=== PATIENT | male | born 1995 | race Caucasian/White ===

== ENCOUNTER 2021-06-06 13:06 | Emergency (ER) | payer BC ==
[2021-06-06] MEDS ORDERED: dexAMETHasone 10 MG/ML VIAL ONE (15:43)
--- NOTE | 2021-06-06 16:16 | EDPHYS ---
Physician Documentation [facility] Name: Al Deleon Age: 26 yrs Sex: Male : 1995 Arrival Date: 06/06/2021 Time: 13:08 Bed 12 Private MD: TAL Physician Eddi Bacon HPI: 06/06 15:08 This 26 yrs old Male presents to ER via Ambulatory with complaints of COVID+, jmm Cough. 15:08 The patient or guardian reports cough. Onset: The symptoms/episode began/occurred jmm gradually, 9 day(s) ago. Modifying factors: The symptoms are alleviated by nothing. the symptoms are aggravated by nothing. Associated signs and symptoms: Pertinent positives: sore throat. The patient has not experienced similar symptoms in the past. Historical: - Allergies: 13:34 No Known Allergies; ll1 - PMHx: 13:34 Seizure; ll1 - PSHx: 13:34 None; ll1 - Immunization history:: Client reports having NOT received the Covid vaccine. Flu vaccine is not up to date. - Social history:: Smoking status: Patient denies any tobacco usage or history of. ROS: 15:08 Eyes: Negative for injury, pain, redness, and discharge. jmm 15:08 Constitutional: Positive for body aches. 15:08 ENT: Positive for sinus congestion, sore throat. 15:08 Respiratory: Positive for cough. 15:08 All other systems are negative. Exam: 15:08 Constitutional: This is a well developed, well nourished patient who is awake, alert, jmm and in no acute distress. Head/Face: atraumatic. Eyes: EOMI, no conjunctival erythema appreciated 15:08 Neck: Trachea midline, Supple Chest/axilla: Normal chest wall appearance and motion. Cardiovascular: Regular rate and rhythm. No edema appreciated 15:08 Back: Normal ROM Skin: General appearance color normal MS/ Extremity: Moves all extremities, no obvious deformities appreciated, no edema noted to the lower extremities Neuro: Awake and alert, normal gait Psych: Behavior is normal, Mood is normal, Patient is cooperative and pleasant 15:08 ENT: Posterior pharynx: erythema, that is mild. 15:08 Respiratory: the patient does not display signs of respiratory distress, Respirations: normal, Breath sounds: are clear throughout. Vital Signs: 13:32 BP 115 / 101; Pulse 91; Resp 18; Temp 97.9; Pulse Ox 100% ; Weight 82.55 kg; Height 6 ll1 ft. 0 in. (182.88 cm); Pain 0/10; 13:32 Body Mass Index 24.68 (82.55 kg, 182.88 cm) ll1 MDM: 15:08 Patient medically screened. [facility] 16:12 Data reviewed: vital signs, nurses notes. Counseling: I had a detailed discussion with urmila the patient and/or guardian regarding: the historical points, exam findings, and any diagnostic results supporting the discharge/admit diagnosis, lab results, the need for outpatient follow up, to return to the emergency department if symptoms worsen or persist or if there are any questions or concerns that arise at home. ED course: Patient is alert nontoxic in appearance in the ED. No signs of respiratory distress is appreciated pulse ox is 100% on room air. Patient is advised to follow-up with PCP otherwise given strict return precautions. Patient understood and agrees with plan of care.. 06/06 15:12 Order name: Strep; Complete Time: 16:09 [facility] 06/06 16:11 Order name: Throat Culture EDMS Administered Medications: 15:32 Drug: Decadron (dexamethasone) 10 mg Route: IM; Site: right deltoid; 16:29 Follow up: Response: No adverse reaction ss Disposition: 06/07 07:31 Co-signature as Attending Physician, Eddi Bacon MD I agree with the assessment and [facility] plan of care. Disposition Summary: 06/06/21 16:15 Discharge Ordered Location: Home [facility] Condition: Stable [facility] Diagnosis - Acute pharyngitis, unspecified [facility] Followup: [facility] - With: Private Physician - When: 2 - 3 days - Reason: Recheck today's complaints, Continuance of care, Re-evaluation by your physician Discharge Instructions: - Discharge Summary Sheet [facility] - Pharyngitis [facility] Forms: - Medication Reconciliation Form [facility] - Thank You Letter [facility] - Antibiotic Education [facility] - Prescription Opioid Use [facility] Prescriptions: - Prednisone 20 mg Oral Tablet - take 3 tablets by ORAL route once daily for 5 days; 15 tablet; Refills: 0, [facility] Product Selection Permitted - Zithromax Z-Juan 250 mg Oral Tablet - take 1 tablet by ORAL route as directed for 5 days Day 1 - take two (2) tablets jmm one time. Day 2, 3, 4 , 5 take one (1) tablet once daily.; 6 tablet; Refills: 0, Product Selection Permitted - albuterol sulfate 90 mcg/actuation Inhalation HFA aerosol inhaler - inhale 2 puff by INHALATION route every 4-6 hours; 1 Pump; Refills: 0, Product jmm Selection Permitted Signatures: Dispatcher [employer] Eddi Laboy MD MD cha Mickail, Joel, PA PA jmm Smirch, Shelby, ROBERT RN ss Sammy Burgos RN RN ll1
--- NOTE | 2021-06-06 16:16 | ER ---
Nurse's Notes [facility] Name: Al Deleon Age: 26 yrs Sex: Male : 1995 Arrival Date: 06/06/2021 Time: 13:08 Bed 12 Private MD: Diagnosis: Acute pharyngitis, unspecified Presentation: 06/06 13:32 Chief complaint: Patient states: Covid positive for 9 days. Lingering cough he came to [facility] get checked out. All other symptoms have slowly gotten better. Coronavirus screen: Client denies travel out of the [place] in the last 14 days. cough unrelated to allergies, difficulty breathing, fatigue, shortness of breath, Client presents with at least one sign or symptom that may indicate coronavirus-19. Standard/surgical mask placed on the client. Ebola Screen: Patient denies travel to an Ebola-affected area in the 21 days before illness onset. No symptoms or risks identified at this time. Initial Sepsis Screen: Does the patient meet any 2 criteria? HR > 90 bpm. No. Patient's initial sepsis screen is negative. Does the patient have a suspected source of infection? No. Patient's initial sepsis screen is negative. Risk Assessment: Do you want to hurt yourself or someone else? Patient reports no desire to harm self or others. Onset of symptoms was May 28, 2021. 13:32 Method Of Arrival: Ambulatory [facility] 13:32 Acuity: BELLA 3 ll1 Historical: - Allergies: 13:34 No Known Allergies; ll1 - PMHx: 13:34 Seizure; ll1 - PSHx: 13:34 None; ll1 - Immunization history:: Client reports having NOT received the Covid vaccine. Flu vaccine is not up to date. - Social history:: Smoking status: Patient denies any tobacco usage or history of. Screenin:00 Abuse screen: Denies threats or abuse. Denies injuries from another. Nutritional ss screening: No deficits noted. Tuberculosis screening: Never had TB. Fall Risk None identified. Assessment: 15:00 General: Appears uncomfortable, Behavior is calm, cooperative, Denies fever, feeling ss ill, fatigue, chills. Pain: Denies pain. Neuro: Level of Consciousness is awake, alert, obeys commands, Oriented to person, place, time, situation. Cardiovascular: Capillary refill < 3 seconds is brisk in bilateral fingers. Respiratory: Reports cough that is dry, hacking, Airway is patent Respiratory effort is even, unlabored, Respiratory pattern is regular, symmetrical. GI: Patient currently denies diarrhea, nausea, vomiting. : No signs and/or symptoms were reported regarding the genitourinary system. EENT: Oral mucosa is moist. Derm: Skin is intact, is healthy with good turgor, Skin is dry, Skin is pink, warm \T\ dry. normal. Musculoskeletal: Circulation, motion, and sensation intact. Range of motion: intact in all extremities, Swelling absent. 16:30 Reassessment: Patient appears in no apparent distress at this time. Patient and/or ss family updated on plan of care and expected duration. Pain level reassessed. Patient is alert, oriented x 3, equal unlabored respirations, skin warm/dry/pink. Vital Signs: 13:32 BP 115 / 101; Pulse 91; Resp 18; Temp 97.9; Pulse Ox 100% ; Weight 82.55 kg; Height 6 ll1 ft. 0 in. (182.88 cm); Pain 0/10; 13:32 Body Mass Index 24.68 (82.55 kg, 182.88 cm) ll1 ED Course: 13:08 Patient arrived in ED. mr 13:34 Triage completed. ll1 13:34 Arm band placed on. ll1 15:00 Patient has correct armband on for positive identification. Bed in low position. Call ss light in reach. 15:06 [facility] urmila 15:06 Eddi Bacon MD is Attending Physician. [facility] 15:15 Martha Womack, ROBERT is Primary Nurse. ss 16:29 No provider procedures requiring assistance completed. Patient did not have IV access ss during this emergency room visit. Administered Medications: 15:32 Drug: Decadron (dexamethasone) 10 mg Route: IM; Site: right deltoid; ss 16:29 Follow up: Response: No adverse reaction Outcome: 16:15 Discharge ordered by . [facility] 16:29 Discharged to home ambulatory. ss 16:29 Condition: good 16:29 Discharge instructions given to patient, Instructed on discharge instructions, follow up and referral plans. Demonstrated understanding of instructions, follow-up care, Prescriptions given X 3. 16:30 Patient left the ED. ss Signatures: Mickail, Jason, PA PA jmm Rojas, [facility] mr Martha Womack, RN RN ss Sammy Burgos RN RN ll1
[2021-06-06 16:34] VITALS: BP 115/101; TEMP 97.9; O2SAT 100
== END 2021-06-06 16:30 | disposition home or self-care (01) ==
LOC: ER 13:06
DX: J02.9 Acute pharyngitis, unspecified (principal); Z86.16 Personal history of COVID-19
CPT/HCPCS: 87070; 87081; 96372; 99283; J1100